=== PATIENT | female | born 1995 ===

== ENCOUNTER 2021-02-19 12:22 | Outpatient (REF) | payer OTHER, SELFPAY ==
--- NOTE | ~2021-02-19 | US_ITS ---
EXAMINATION: US DIAGNOSTIC ULTRASOUND BREAST, RIGHT CLINICAL INFORMATION: Palpable abnormality. Previous biopsy and surgical removal of right breast mass with differential diagnosis of phyllodes tumor or fibroadenoma. COMPARISON: Outside studies of 07/21/2018 and 07/13/2018. TECHNIQUE: Ultrasound of the breast is performed with real-time dutton-scale imaging and color Doppler. FINDINGS: At the 5 o'clock position, approximately 5 cm from the nipple, there is a heterogeneous hypoechoic well-circumscribed mass with some increased through sound transmission and internal vascularity likely representing a fibroadenoma. This, however, measures 5.4 x 3.4 x 3.0 cm in size and although likely represents a fibroadenoma, a phyllodes tumor cannot be excluded; and biopsy is recommended. Results were not discussed with the patient at time of study due to not having outside studies or reports. 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 ASSESSMENT: BI-RADS 4: Suspicious. (Subcategory 4A: Low suspicion for malignancy). RECOMMENDATION: Ultrasound-guided biopsy or surgical consultation. Referring physician and patient will be notified by Breast Center Navigator in the morning when physician's office is open.
--- NOTE | ~2021-02-19 | US_ITS ---
EXAMINATION: US DIAGNOSTIC ULTRASOUND BREAST, LEFT CLINICAL INFORMATION: Palpable abnormality. COMPARISON: Outside studies of 07/21/2018 and 07/13/2018. TECHNIQUE: Ultrasound of the breast is performed with real-time dutton scale imaging and color Doppler. FINDINGS: Patient came a history of previous right breast biopsy and surgery. The pathology result that was obtained from [facility] gave a differential diagnosis between phyllodes tumor and cellular fibroadenoma. This lesion was at the 3 o'clock position approximately 6 cm from the nipple. At the 8 o'clock position approximately 8 cm nipple, there is a well-circumscribed hypoechoic lesion measuring 1.4 x 1.1 x 1.1 cm in size. There is increase through sound transmission and minimal vascular flow appreciated. The lesion is wider than it is tall and has the appearance of a fibroadenoma. At the 3 o'clock position approximately 9 cm from nipple, there is a large 4.0 x 2.0 x 2.1 cm well-circumscribed heterogeneous and hypoechoic mass with distal through sound transmission and internal vascularity. Would consider biopsying the 3 o'clock lesion which measures up to 4 cm in diameter and with previous lesion that was biopsied and removed having a differential diagnosis of phyllodes tumor or fibroadenoma. There results were not discussed with the patient at time of visit due to not having outside studies or reports for comparison. 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 ASSESSMENT: BI-RADS 4: Suspicious. (Subcategory 4A: Low suspicion for malignancy). RECOMMENDATION: Ultrasound-guided biopsy or surgical removal. The above recommendation will be called to referring provider's office in the morning when the office opens. Patient will be notified by breast center navigator tomorrow.
== END 2021-02-19 12:23 | disposition home or self-care (01) ==
LOC: HO.MAMMO 12:22
PROVIDERS: Visit Provider Family Medicine
DX: N63.11 Unspecified lump in the right breast, upper outer quadrant (principal); N63.25 Unspecified lump in the left breast, overlapping quadrants
CPT/HCPCS: 76642

== ENCOUNTER 2021-02-26 15:08 | Emergency (ER) | payer OTHER, SELFPAY ==
--- NOTE | ~2021-02-26 | CT_ITS ---
EXAMINATION: CT ABDOMEN AND PELVIS WITHOUT CONTRAST CLINICAL INFORMATION: Right flank and right upper quadrant pain. Fall. COMPARISON: None TECHNIQUE: Multidetector volumetric imaging was performed from the superior aspect of the liver through the pubic symphysis. Sagittal and coronal reformatted images were obtained on the technologist's workstation. This CT examination was performed using dose optimization techniques as appropriate, variously including the following: *Automated exposure control *Adjustment of mA and/or kV according to patient size (this includes techniques or standardized protocols for targeted exams where dose is matched to indication/reason for exam; i.e. extremities or head) *Use of iterative reconstruction technique DLP: 901 mGy-cm FINDINGS: LUNG BASES: The visualized lung bases are clear. Areas of soft tissue nodularity within the right and left breast as seen on the recent breast ultrasound. Correlation with breast imaging is recommended. LIVER, GALLBLADDER, AND BILIARY TREE: The liver is normal in size and shape. Parenchymal hypoattenuation, consistent with steatosis. No focal hepatic lesion or biliary ductal dilatation is present. The gallbladder is unremarkable with no evidence of radiopaque gallstones, gallbladder wall thickening, or obvious pericholecystic inflammatory changes. PANCREAS: Unremarkable. SPLEEN: Unremarkable. ADRENAL GLANDS: Unremarkable. KIDNEYS AND URETERS: The kidneys are normal in size, shape, and attenuation. No hydronephrosis, hydroureter, or calculi seen. No perinephric stranding. BLADDER: Unremarkable. GASTROINTESTINAL TRACT: No bowel wall thickening or associated inflammatory change. No small or large bowel obstruction. Unremarkable appendix. PERITONEAL CAVITY: No intra-abdominal free air or free fluid. No intra-abdominal mass or organized fluid collection/abscess formation. ABDOMINAL WALL: No significant hernia is appreciated. LYMPH NODES: No significant lymphadenopathy. VASCULAR: Unremarkable. PELVIC VISCERA: The uterus and adnexa are unremarkable. OSSEOUS STRUCTURES: No acute fracture or dislocation. No concerning lytic or blastic osseous lesion. CT/CT abdomen pelvis wo con IMPRESSION: 1. No acute intra-abdominal or intrapelvic injury. No acute fracture or dislocation. 2. Hepatic steatosis. No hepatic parenchymal lesion or biliary ductal dilatation. 3. Right and left breast soft tissue lesions, similar when compared to the prior ultrasound. Correlate with prior breast imaging and recommendations.
[2021-02-26 16:04] VITALS: BP 147/82; PULSE 100; RESP 16; TEMP 36.9; O2SAT 100; BMI 37.8
[2021-02-26 16:34] LABS: Glucose Urine UA NEG (NEG); Leukocyte Esterase Urine NEG (NEG); Nitrite Urine NEG (NEG); Specific Gravity - Urine 1.025 (1.005-1.025); Urine Blood NEG (NEG); Urine Ketones NEG (NEG); Urine Protein NEG (NEG-TRACE)
[2021-02-26 16:35] LABS: Appearance Urine CLEAR; Color Urine YELLOW; UPreg QC Valid YES; Urine Pregnancy NEGATIVE (NEGATIVE)
--- NOTE | 2021-02-26 16:48 | ED.BACK ---
HPI - Back Pain/Injury General Chief Complaint: Back Pain/Injury Stated Complaint: back pain - fall yesterdat Time Seen by Provider: 02/26/21 16:46 Source: patient Mode of arrival: ambulatory Limitations: no limitations History of Present Illness HPI Narrative: healthy 26 yo female here with 2 months of sharp R sided flank pain and RUQ pain worse with eating last night fell off the bed and notes her R flank and RUQ hurt worse she landed on a hard shoe no vomiting/hematuria/no other injuries noted MD elicited complaint: back pain and back injury Pertinent past history: prior back pain Onset (ago): day(s) (yesterday) Timing: constant Severity: moderate Similar Symptoms Previously: Yes Quality: aching and throbbing Location: right flank Radiation: abdomen Exacerbating factors: movement Relieving factors: none Context: fall Associated symptoms: denies other symptoms Work related injury: No Related Data Previous Rx's Medication Instructions Recorded cyclobenzaprine 10 mg PO TID PRN #14 tab 02/26/21 ibuprofen 600 mg PO Q6H PRN #30 tab 02/26/21 lidocaine 1 patch TOPICAL DAILY PRN #10 ea 02/26/21 Allergies Allergy/AdvReac Type Severity Reaction Status Date / Time Penicillins Allergy Anaphylaxis Verified 02/26/21 16:02 Review of Systems Review of Systems: Constitutional : No Weight loss, No Fever, No Chills ENT/Mouth : No sore throat, No Rhinorrhea Eyes: No Swelling, No Redness Cardiovascular : No Chest Pain, No SOB, NoEdema Respiratory : No Cough, No Sputum, No Wheezing Gastrointestinal : no Nausea, no Vomiting, no Diarrhea, positive abdominal Pain, No Hematochezia, No Melena Genitourinary : No Dysuria, No Urinary Frequency, No Hematuria, No Urgency Musculoskeletal : No joint pain, No Myalgias, No Joint Swelling, pos flank pain Skin : No Skin Lesions, No rash Neuro : No Weakness, No Numbness, No Dizziness, No Headache Psych : No Anxiety/Panic, No Depression Heme/Lymph: No Bruising, No Lymphadenopathy Endocrine : No Polyuria, No Polydipsia All other systems reviewed and are negative. [facility] Past Medical History Attestation statement: The following information was validated with the patient. Medical History (Updated 02/26/21 @ 18:28 by Tamra Powers DO) No active medical problems Social History Social History (Updated 02/26/21 @ 16:54 by Tamra Powers DO) Patient Tobacco Use Status: Never used Tobacco Use of substances other than those prescribed or required for medical reasons: No Advance Directives: No Advance Directives Information Provided: No Patient : No Physical Exam Vital Signs: Vital Signs: Last Vital Signs Temp 98.4 F 02/26/21 16:04 Pulse 79 02/26/21 17:36 Resp 16 02/26/21 17:36 BP 146/82 H 02/26/21 17:36 Pulse Ox 100 02/26/21 17:36 Body Mass Index 37.8 Appearance: Alert. Oriented X3. No acute distress. Eyes: Pupils equal, round and reactive to light. ENT: Pharynx normal. Neck: Normal inspection. Neck supple. CVS: Normal heart rate and rhythm. Pulses normal. Respiratory: No respiratory distress. Breath sounds normal. Abdomen: Soft and mild RUQ ttp no rebound or guarding Back: ttp along R flank no hematoma or trauma noted Skin: Skin warm and dry. Normal skin color. Normal skin turgor. Extremities: No lower extremity edema. No calf ttp Neuro: Oriented X 3. No motor deficit. No sensory deficit. Course Course Course Narrative: no acute findings, stable for DC MDM - Back Pain/Injury MDM Narrative Medical decision making narrative: healthy 26 yo female here with 2 months of sharp R sided flank pain and RUQ pain worse with eating last night fell off the bed and notes her R flank and RUQ hurt worse she landed on a hard shoe no vomiting/hematuria/no other injuries noted her abdomen is relatively benign suspect that this is GB disease given related to foods, she c/o R flank as well x 2 to 3 months that I cannot fully contribute to MSK problem at this time UA for hematuria and CT scan for mass/renal colic/gallstones ordered, doubt acute abdominal trauma, doubt acute infection, dispo per results and findings. Lab Data Labs: Lab Results 02/26/21 02/26/21 Range/Units 16:20 16:20 Urine Color YELLOW Urine Appearance CLEAR Urine pH 6.0 (5.0-8.0) Ur Specific Murphy 1.025 (1.005-1.025) Urine Protein NEG (NEG-TRACE) MG/DL Urine Glucose (UA) NEG (NEG) MG/DL Urine Ketones NEG (NEG) MG/DL Urine Blood NEG (NEG) Urine Nitrite NEG (NEG) Ur Leukocyte Esterase NEG (NEG) Urine Test NEGATIVE (NEGATIVE) Discharge Plan Discharge Clinical Impression: Thoracic back pain Qualifiers: Chronicity: acute Back pain laterality: right Qualified Code(s): M54.6 - Pain in thoracic spine Patient Disposition: Home, Self-Care Instructions: Back Pain (ED) Additional Instructions: return to ED for any worsening symptoms or concerns CT scan result 1. No acute intra-abdominal or intrapelvic injury. No acute fracture or dislocation. 2. Hepatic steatosis. No hepatic parenchymal lesion or biliary ductal dilatation. 3. Right and left breast soft tissue lesions, similar when compared to the prior ultrasound. Correlate with prior breast imaging and recommendations. Prescriptions: New cyclobenzaprine 10 mg tablet 10 mg PO TID PRN (Reason: muscle spasm) Qty: 14 RF: 0 lidocaine 4 % adhesive patch,medicated 1 patch topical DAILY PRN (Reason: pain) Qty: 10 RF: 0 ibuprofen 600 mg tablet 600 mg PO Q6H PRN (Reason: pain) Qty: 30 RF: 0 Referrals: Imelda Vail MD [Primary Care Provider] - 5 days (if not better) Stand Alone Forms: Work/School Release
[2021-02-26 17:36] VITALS: BP 146/82; PULSE 79; RESP 16; O2SAT 100
== END 2021-02-26 18:38 | disposition home or self-care (01) ==
PROVIDERS: Emergency Medicine Emergency Medical Services; Emergency Provider Emergency Medicine; PCP Pediatrics
DX: M54.6 Pain in thoracic spine (principal); R10.11 Right upper quadrant pain
CPT/HCPCS: 74176; 81003; 81025; 99284

== ENCOUNTER 2021-03-01 09:45 | Outpatient (REF) | payer OTHER, SELFPAY ==
--- NOTE | ~2021-03-01 | US_ITS ---
EXAMINATION: ULTRASOUND GUIDED CORE BIOPSY BREAST (TWO SITES), BILATERAL POST PROCEDURE DIGITAL MAMMOGRAM, BILATERAL CLINICAL INFORMATION: 26-year-old with prior history incision right breast mass (phyllodes versus fibroadenoma). Recent targeted ultrasound demonstrates right breast mass lower quadrant 5.4 cm, and left breast outer quadrant 4.0 cm. COMPARISON: Bilateral targeted breast ultrasound 02/19/2021. FINDINGS: Proper informed consent is obtained from the patient after discussion of the procedure, potential risks and complications, and alternatives. Patient was given an opportunity for questions. The patient appeared to understand. The patient consented to the procedure and signed the consent form. LEFT BREAST: LOCATION: Lower outer quadrant, approximately 3:00. GUIDANCE: Ultrasound-guided; aseptic technique. LESION: Solid macrolobulated oval mass 4 cm in greatest dimension. APPROACH: Oblique caudal cranial. ANESTHESIA: 10 mL 1% lidocaine. DERMATOTOMY: Skin brian dermatotomy performed. NEEDLE: 14-gauge Achieve core biopsy device with 13.5-gauge co-axial guide needle. CORES: 5. CLIP: HydroMARK; shape: butterfly. RIGHT BREAST: New anesthesia and biopsy supplies are used. LOCATION: Lower inner quadrant, approximately 5:00. GUIDANCE: Ultrasound-guided; aseptic technique. LESION: Solid macrolobulated oval mass 5.4 cm in greatest dimension. APPROACH: Lateral medial. ANESTHESIA: 10 mL 1% lidocaine. DERMATOTOMY: Skin brian dermatotomy performed. NEEDLE: 14-gauge Achieve core biopsy device with 13.5-gauge co-axial guide needle. CORES: 5. CLIP: HydroMARK; shape: open coil. POST PROCEDURE DIGITAL MAMMOGRAM: The post biopsy mammogram is performed in separate room using separate digital mammography equipment from the biopsy procedure. Bilateral CC views are obtained to confirm clip deployment. There are scattered areas of fibroglandular density (breast composition category: b). The clip markers are in position and overlie left outer mass and right central inner mass. No gross hematoma. The patient tolerated the procedure well. No immediate complications. Home instructions reviewed with the patient. Final pathology results are pending. US/US breast ndl core biopsy RT IMPRESSION: 1. Status post ultrasound-guided core biopsy bilateral breast. 2. Clips placed: HydroMARK; shape: butterfly and HydroMARK; shape: open coil 3. Pathology pending. An addendum report will be issued.
--- NOTE | ~2021-03-01 | US_ITS ---
EXAMINATION: ULTRASOUND GUIDED CORE BIOPSY BREAST (TWO SITES), BILATERAL POST PROCEDURE DIGITAL MAMMOGRAM, BILATERAL CLINICAL INFORMATION: 26-year-old with prior history incision right breast mass (phyllodes versus fibroadenoma). Recent targeted ultrasound demonstrates right breast mass lower quadrant 5.4 cm, and left breast outer quadrant 4.0 cm. COMPARISON: Bilateral targeted breast ultrasound 02/19/2021. FINDINGS: Proper informed consent is obtained from the patient after discussion of the procedure, potential risks and complications, and alternatives. Patient was given an opportunity for questions. The patient appeared to understand. The patient consented to the procedure and signed the consent form. LEFT BREAST: LOCATION: Lower outer quadrant, approximately 3:00. GUIDANCE: Ultrasound-guided; aseptic technique. LESION: Solid macrolobulated oval mass 4 cm in greatest dimension. APPROACH: Oblique caudal cranial. ANESTHESIA: 10 mL 1% lidocaine. DERMATOTOMY: Skin brian dermatotomy performed. NEEDLE: 14-gauge Achieve core biopsy device with 13.5-gauge co-axial guide needle. CORES: 5. CLIP: HydroMARK; shape: butterfly. RIGHT BREAST: New anesthesia and biopsy supplies are used. LOCATION: Lower inner quadrant, approximately 5:00. GUIDANCE: Ultrasound-guided; aseptic technique. LESION: Solid macrolobulated oval mass 5.4 cm in greatest dimension. APPROACH: Lateral medial. ANESTHESIA: 10 mL 1% lidocaine. DERMATOTOMY: Skin brian dermatotomy performed. NEEDLE: 14-gauge Achieve core biopsy device with 13.5-gauge co-axial guide needle. CORES: 5. CLIP: HydroMARK; shape: open coil. POST PROCEDURE DIGITAL MAMMOGRAM: The post biopsy mammogram is performed in separate room using separate digital mammography equipment from the biopsy procedure. Bilateral CC views are obtained to confirm clip deployment. There are scattered areas of fibroglandular density (breast composition category: b). The clip markers are in position and overlie left outer mass and right central inner mass. No gross hematoma. The patient tolerated the procedure well. No immediate complications. Home instructions reviewed with the patient. Final pathology results are pending. US/US breast ndl core biopsy LT IMPRESSION: 1. Status post ultrasound-guided core biopsy bilateral breast. 2. Clips placed: HydroMARK; shape: butterfly and HydroMARK; shape: open coil 3. Pathology pending. An addendum report will be issued.
== END 2021-03-01 09:46 | disposition home or self-care (01) ==
LOC: HO.MAMMO 09:45
PROVIDERS: Visit Provider Surgery
DX: N63.25 Unspecified lump in the left breast, overlapping quadrants (principal); N63.14 Unspecified lump in the right breast, lower inner quadrant
CPT/HCPCS: 19083; 77066; 88305; 99202; A4648

== ENCOUNTER → 2021-03-06 13:56 | Outpatient (BNVA) | payer OTHER, SELFPAY | PROVIDERS: PCP Pediatrics; Referring Provider Pediatrics; Visit Provider Surgery | DX: N63.10 Unspecified lump in the right breast, unspecified quadrant (principal); N63.20 Unspecified lump in the left breast, unspecified quadrant; D24.1 Benign neoplasm of right breast; D24.2 Benign neoplasm of left breast | CPT/HCPCS: 99212 ==

== ENCOUNTER 2021-03-16 06:39 | Emergency (ER) | payer OTHER, SELFPAY ==
[2021-03-16 07:02] VITALS: BP 144/95; PULSE 92; RESP 20; TEMP 36.7; O2SAT 100; BMI 37.5
--- NOTE | 2021-03-16 07:07 | ED.GENADULT ---
HPI - General Adult General Chief complaint: General Medical Stated complaint: flank pain Time Seen by Provider: 03/16/21 06:59 Source: patient Mode of arrival: ambulatory Limitations: no limitations History of Present Illness HPI narrative: Patient comes to the emergency room complaining of right-sided back pain. Patient states it started yesterday prior to going to work. Patient states the pain is worse when she moves certain ways. Denies abdominal pain, no nausea vomiting or diarrhea, denies dysuria or hematuria. Patient's symptoms unrelated to meals. Patient was evaluated here in the emergency room 2 and half weeks ago for similar reason. A CT was done, which showed no acute intra-abdominal or intrapelvic injury, normal liver, gallbladder is unremarkable, no kidney stones. Related Data Home Medications Medication Instructions Recorded Confirmed blood pressure test kit-large #1 ea 03/01/21 03/06/21 hydrochlorothiazide 25 mg tablet 25 mg PO DAILY 03/01/21 03/06/21 Previous Rx's Medication Instructions Recorded cyclobenzaprine 10 mg PO TID PRN #14 tab 02/26/21 ibuprofen 600 mg PO Q6H PRN #30 tab 02/26/21 lidocaine 1 patch TOPICAL DAILY PRN #10 ea 02/26/21 baclofen 10 mg PO TID PRN #10 tab 03/16/21 ketorolac 10 mg PO TID PRN 5 Days #7 tab 03/16/21 Allergies Allergy/AdvReac Type Severity Reaction Status Date / Time Penicillins Allergy Anaphylaxis Verified 02/26/21 16:02 Review of Systems Review of Systems: Constitutional : No Weight loss, No Fever, No Chills, No Night Sweats, No Fatigue, No Malaise ENT/Mouth : No Hearing loss, No Ear Pain, No Nasal Congestion, No Sinus Pain, No Hoarseness, No sore throat, No Rhinorrhea, No Swallowing Difficulty Eyes: No Eye Pain, No Swelling, No Redness, No Foreign Body, No Discharge, No Vision Changes Cardiovascular : No Chest Pain, No SOB, No Dyspnea on Exertion, No Orthopnea, No Edema, No Palpitations Respiratory : No Cough, No Sputum, No Wheezing, No Smoke Exposure, No Dyspnea Gastrointestinal : No Nausea, No Vomiting, No Diarrhea, No Constipation, No abdominal Pain, No Hematochezia, No Melena Genitourinary : no irregular bleeding, No Dysuria, No Urinary Frequency, No Hematuria, No Urinary Incontinence, No Urgency, No Flank Pain, No Urinary Flow Changes, No Hesitancy Musculoskeletal : Complaining of right upper back pain, No joint pain, No Myalgias, No Joint Swelling Skin : No Skin Lesions, No rash Neuro : No Weakness, No Numbness, No Paresthesias, No Loss of Consciousness, No Dizziness, No Headache Psych : No Anxiety/Panic, No Depression, No SI/HI/AH/VH, No Social Issues, Heme/Lymph: No Bruising, No Bleeding,No Lymphadenopathy Endocrine : No Polyuria, No Polydipsia, No Temperature Intolerance [facility] Past Medical History Medical History No active medical problems Surgical History History of lumpectomy of right breast (2018) Family History Family History Maternal Aunt Breast cancer Social History Social History Alcohol intake: never Patient Tobacco Use Status: Never used Tobacco Use of substances other than those prescribed or required for medical reasons: No Advance Directives: No Advance Directives Information Provided: No Patient : No Physical Exam Vital Signs: Vital Signs: Last Vital Signs Temp 98.1 F 03/16/21 07:02 Pulse 92 03/16/21 07:02 Resp 20 03/16/21 07:02 BP 144/95 H 03/16/21 07:02 Pulse Ox 100 03/16/21 07:02 Body Mass Index 37.5 Appearance: Alert. Oriented X3. No acute distress. Well-appearing Eyes: Pupils equal, round and reactive to light. ENT: Pharynx normal. Neck: Normal inspection. Neck supple. No lymph nodes noted. No crepitus CVS: Normal heart rate and rhythm. Pulses normal. Normal S1 and S2 Respiratory: No respiratory distress. Breath sounds normal. No Wheezing. No rales Abdomen: Soft and nontender. No rigidity. No distention. Back: No pain to palpation on the left side of the back, discomfort to palpation over the thoracic back on the right side, negative CVA tenderness Skin: Skin warm and dry. Normal skin color. Normal skin turgor. Extremities: No lower extremity edema. No lower extremity edema. No Lacerations. No Rash Neuro: Oriented X 3. No motor deficit. No sensory deficit. Moving all extermities. No slurred speech. Course Course Course Narrative: Patient's urinalysis shows +1 blood, patient is currently menstruating. As mentioned above, patient does not have abdominal pain, back pain likely musculoskeletal. Patient received 1 dose of IM Toradol. I discussed with the patient that since she has been having this intermittent pains for over 3 months now, she went to follow-up with her primary care physician, she may benefit from physical therapy Medical Decision Making Lab Data Result diagrams: 03/16/21 07:21 03/16/21 07:21 Labs: Lab Results 03/16/21 03/16/21 03/16/21 Range/Units 07:21 07:21 07:21 WBC 9.7 (4.8-10.8) X10*3/uL RBC 4.99 (4.20-5.50) X10*6/uL Hgb 12.5 (12.0-16.0) g/dl Hct 39.5 (37-47) % MCV 79.2 L (80-98) fL MCH 25.1 L (27.0-33.0) pg MCHC 31.6 (31.0-35.0) g/dl RDW 15.3 (11.0-16.0) % Plt Count 355 (160-400) X10*3/uL MPV 10.7 (9.4-12.3) fL Immature Gran % (Auto) 0.3 (0.0-0.4) % Neut % (Auto) 61.1 (45-73) % Lymph % (Auto) 29.2 (20-40) % [place] % (Auto) 6.1 (2-11) % Eos % (Auto) 2.8 (0-4) % Baso % (Auto) 0.5 (0-2) % Lymph # (Auto) 2.8 (1.2-4.9) X10*3/uL [place] # (Auto) 0.6 (0.1-1.2) X10*3/uL Eos # (Auto) 0.3 (0.0-0.4) X10*3/uL Baso # (Auto) 0.1 (0.0-0.2) X10*3/uL Abs Immat Gran (auto) 0.03 (0.00-0.03) X10*3/uL Absolute Neuts (auto) 6.0 (2.0-8.3) X10*3/uL Absolute Nucleated RBC 0.000 (0.0-0.012) X10*3/uL Nucleated RBC % (auto) 0.0 (0.0-0.2) /100WBC Sodium 139 (135-145) mmol/L Potassium 3.4 (3.3-5.1) mmol/L Chloride 102 (96-108) mmol/L Carbon Dioxide 28 (22-29) mmol/L Anion Gap 12 (12-20) BUN 12 (9-16) mg/dL Creatinine 0.89 (0.5-1.4) mg/dL Estim Creat Clear Calc 105.7 Estimated GFR > 60 Random Glucose 127 H (60-115) mg/dL Calcium 9.5 (8.4-10.2) mg/dL Total Bilirubin 0.4 (0.0-1.0) mg/dL Direct Bilirubin < 0.2 (0.0-0.5) mg/dL AST 16 (5-31) U/L ALT 26 (0-31) U/L Alkaline Phosphatase 69 (39-117) U/L Total Protein 7.7 (6.5-8.0) g/dL Albumin 4.1 (3.5-5.0) g/dL Urine Color YELLOW Urine Appearance CLEAR Urine pH 6.0 (5.0-8.0) Ur Specific [place] 1.010 (1.005-1.025) Urine Protein NEG (NEG-TRACE) MG/DL Urine Glucose (UA) NEG (NEG) MG/DL Urine Ketones NEG (NEG) MG/DL Urine Blood 1+ H (NEG) Urine Nitrite NEG (NEG) Ur Leukocyte Esterase NEG (NEG) Urine RBC 0-2 (0) /HPF Urine WBC 0-2 (0-4) /HPF Ur Squamous Epith Cells TRACE /LPF Calcium Phosphate Cryst TRACE /LPF Urine Bacteria TRACE /LPF Urine Test (NEGATIVE) 03/16/21 Range/Units 07:21 WBC (4.8-10.8) X10*3/uL RBC (4.20-5.50) X10*6/uL Hgb (12.0-16.0) g/dl Hct (37-47) % MCV (80-98) fL MCH (27.0-33.0) pg MCHC (31.0-35.0) g/dl RDW (11.0-16.0) % Plt Count (160-400) X10*3/uL MPV (9.4-12.3) fL Immature Gran % (Auto) (0.0-0.4) % Neut % (Auto) (45-73) % Lymph % (Auto) (20-40) % [place] % (Auto) (2-11) % Eos % (Auto) (0-4) % Baso % (Auto) (0-2) % Lymph # (Auto) (1.2-4.9) X10*3/uL [place] # (Auto) (0.1-1.2) X10*3/uL Eos # (Auto) (0.0-0.4) X10*3/uL Baso # (Auto) (0.0-0.2) X10*3/uL Abs Immat Gran (auto) (0.00-0.03) X10*3/uL Absolute Neuts (auto) (2.0-8.3) X10*3/uL Absolute Nucleated RBC (0.0-0.012) X10*3/uL Nucleated RBC % (auto) (0.0-0.2) /100WBC Sodium (135-145) mmol/L Potassium (3.3-5.1) mmol/L Chloride (96-108) mmol/L Carbon Dioxide (22-29) mmol/L Anion Gap (12-20) BUN (9-16) mg/dL Creatinine (0.5-1.4) mg/dL Estim Creat Clear Calc Estimated GFR Random Glucose (60-115) mg/dL Calcium (8.4-10.2) mg/dL Total Bilirubin (0.0-1.0) mg/dL Direct Bilirubin (0.0-0.5) mg/dL AST (5-31) U/L ALT (0-31) U/L Alkaline Phosphatase (39-117) U/L Total Protein (6.5-8.0) g/dL Albumin (3.5-5.0) g/dL Urine Color Urine Appearance Urine pH (5.0-8.0) Ur Specific [place] (1.005-1.025) Urine Protein (NEG-TRACE) MG/DL Urine Glucose (UA) (NEG) MG/DL Urine Ketones (NEG) MG/DL Urine Blood (NEG) Urine Nitrite (NEG) Ur Leukocyte Esterase (NEG) Urine RBC (0) /HPF Urine WBC (0-4) /HPF Ur Squamous Epith Cells /LPF Calcium Phosphate Cryst /LPF Urine Bacteria /LPF Urine Test NEGATIVE (NEGATIVE) Discharge Plan Discharge Clinical Impression: Chronic right-sided thoracic back pain Patient Disposition: Home, Self-Care Instructions: Back Pain (ED) Additional Instructions: Please follow-up with your primary care physician tomorrow. If you have any worsening or new symptoms, please return to the emergency room or call 911 Prescriptions: New ketorolac 10 mg tablet 10 mg PO TID PRN (Reason: pain) 5 Days Qty: 7 RF: 0 baclofen 10 mg tablet 10 mg PO TID PRN (Reason: muscle pain) Qty: 10 RF: 0 No Action cyclobenzaprine 10 mg tablet 10 mg PO TID PRN (Reason: muscle spasm) Qty: 14 RF: 0 lidocaine 4 % adhesive patch,medicated 1 patch topical DAILY PRN (Reason: pain) Qty: 10 RF: 0 ibuprofen 600 mg tablet 600 mg PO Q6H PRN (Reason: pain) Qty: 30 RF: 0 (DME) blood pressure test kit-large Kit See Rx Instructions ea .ROUTE DAILY Qty: 1 RF: 0 hydrochlorothiazide 25 mg tablet 25 mg PO DAILY RF: 0
--- NOTE | 2021-03-16 07:08 | PC.NURSE ---
MD IN TO ASSESS PT. PATIENT REPORTING PAIN IN RIGHT MID BACK WORKSE WITH MOVEMENT AND TOUCH. 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 ALSO TOLD RN SHE HAS NOT HAD THIS TYPE OF PAIN BEFORE BUT HAS BEEN SEEN RECENTLY FOR SIMILAR COMPLAINT AND HAS HAD PAIN FOR MONTHS. PATIENT AWARE OF PLAN FOR URINE SAMPLE, BLOOD WORK AND MED FOR PAIN.
[2021-03-16 07:25] LABS: MANUAL DIFF FLAG NO
[2021-03-16 07:26] LABS: Basophils Absolute Auto 0.1 X10*3/uL (0.0-0.2); Basophils Percent Auto 0.5 % (0-2); Eosinophils Absolute Auto 0.3 X10*3/uL (0.0-0.4); Eosinophils Percent Auto 2.8 % (0-4); Hematocrit 39.5 % (37-47); Hemoglobin 12.5 g/dl (12.0-16.0); Imm Gran Abs Auto 0.03 X10*3/uL (0.00-0.03); Imm Gran Pct Auto 0.3 % (0.0-0.4); Lymphocytes Absolute Auto 2.8 X10*3/uL (1.2-4.9); Lymphocytes Percent Auto 29.2 % (20-40); Mean Corpuscular HGB Conc 31.6 g/dl (31.0-35.0); Mean Corpuscular Hemoglobin 25.1 pg (27.0-33.0); Mean Corpuscular Volume 79.2 fL (80-98); Mean Platelet Volume 10.7 fL (9.4-12.3); Monocytes Absolute Auto 0.6 X10*3/uL (0.1-1.2); Monocytes Percent Auto 6.1 % (2-11); Neutrophils Percent Auto 61.1 % (45-73); Platelet Count 355 X10*3/uL (160-400); Red Blood Count 4.99 X10*6/uL (4.20-5.50); Red Cell Distribution Width 15.3 % (11.0-16.0); White Blood Count 9.7 X10*3/uL (4.8-10.8)
[2021-03-16 07:32] LABS: Appearance Urine CLEAR; Color Urine YELLOW; Glucose Urine UA NEG (NEG); Leukocyte Esterase Urine NEG (NEG); Nitrite Urine NEG (NEG); Urine Blood 1+ (NEG); Urine Ketones NEG (NEG); Urine Protein NEG (NEG-TRACE)
[2021-03-16 07:42] LABS: UPreg QC Valid YES; Urine Pregnancy NEGATIVE (NEGATIVE)
[2021-03-16 07:43] LABS: Bacteria Urine TRACE /LPF; Calcium Phosphate Crystals Ur TRACE /LPF; RBC Urine 0-2 /HPF (0); Squamous Epithelial Cell Urine TRACE /LPF; WBC Urine 0-2 /HPF (0-4)
[2021-03-16 08:02] LABS: Alanine Aminotransferase 26 U/L (0-31); Albumin Level 4.1 g/dL (3.5-5.0); Alkaline Phosphatase 69 U/L (39-117); Anion Gap 12 (12-20); Aspartate Amino Transferase 16 U/L (5-31); Bilirubin Direct < 0.2 mg/dL (0.0-0.5); Bilirubin Total 0.4 mg/dL (0.0-1.0); Blood Urea Nitrogen 12 mg/dL (9-16); Calcium 9.5 mg/dL (8.4-10.2); Carbon Dioxide 28 mmol/L (22-29); Chloride 102 mmol/L (96-108); Creatinine Clr Calc Pharmacy 105.7; Estimated Glomerular Filt Rate > 60; Glucose Random 127 mg/dL (60-115); Potassium 3.4 mmol/L (3.3-5.1); Sodium 139 mmol/L (135-145); Total Protein 7.7 g/dL (6.5-8.0)
[2021-03-16 08:13] VITALS: BP 131/86; PULSE 72; RESP 16; O2SAT 100
[2021-03-16] MEDS: Ketorolac Tromethamine 60 MG/2 ML VIAL IM (08:14)
== END 2021-03-16 08:20 | disposition home or self-care (01) ==
PROVIDERS: Emergency Provider Emergency Medicine; PCP Pediatrics
DX: G89.29 Other chronic pain (principal); M54.6 Pain in thoracic spine
CPT/HCPCS: 36415; 80048; 80076; 81001; 81025; 85025; 96372; 99284; J1885

== ENCOUNTER 2021-09-20 12:52 | Outpatient (REF) | payer OTHER, SELFPAY ==
--- NOTE | ~2021-09-20 | US_ITS ---
EXAMINATION: US DIAGNOSTIC ULTRASOUND BREAST, LEFT CLINICAL INFORMATION: Fibroadenomas. COMPARISON: 03/01/2021 and studies dating back to 07/13/2018. TECHNIQUE: Ultrasound of the breast is performed with real-time dutton scale imaging and color Doppler. FINDINGS: At the 3 o'clock position 9 cm from nipple there is again noted to be a heterogeneous hypoechoic structure measuring 3.0 x 2.0 x 3.3 cm in size similar in appearance to previous study. There is some increased through sound transmission present. There is internal vascularity present. At the 8 o'clock position 8 cm from the nipple there is again noted to be a heterogeneous hypoechoic structure which is smoothly marginated with internal vascularity and with some distal sound enhancement. This measures slightly larger than on prior study at 1.5 x 1.2 x 1.7 cm compared with 1.4 x 1.1 x 1.1 cm in size from study of 02/19/2021. Results are discussed with the patient at time of visit. US/US breast LT limited IMPRESSION: Slight increase in size of bilateral fibroadenomas for which 12 month follow-up ultrasound studies are recommended. ASSESSMENT: BI-RADS 3: Probably Benign. RECOMMENDATION: 12 month follow-up bilateral ultrasound studies. This patient's information was entered into a reminder system with a target due date for their next mammogram.
--- NOTE | ~2021-09-20 | US_ITS ---
EXAMINATION: US DIAGNOSTIC ULTRASOUND BREAST, RIGHT CLINICAL INFORMATION: Six-month followup bilateral fibroadenomas. COMPARISON: 03/01/2021 and studies dating back to 07/13/2018 TECHNIQUE: Ultrasound of the breast is performed with real-time dutton-scale imaging and color Doppler. FINDINGS: There is again noted to be a heterogeneous circumscribed mass containing an echogenic clip 5 o'clock position 5 cm from nipple, which measures approximately 5.0 x 4.0 x 3.1 cm in size and is similar in appearance to previous examination. The lesion is wider than it is tall and contains internal vascularity. There is some distal sound enhancement present. Results are discussed with the patient at time of visit. US/US breast RT limited IMPRESSION: No suspicious change of right breast fibroadenoma at the 5 o'clock position 5 cm from the nipple. Recommend 12-month followup ultrasound evaluation. ASSESSMENT: BI-RADS 2: Benign. RECOMMENDATION: One-year followup bilateral breast ultrasound. This patient's information was entered into a reminder system with a target due date for their next mammogram.
== END 2021-09-20 12:53 | disposition home or self-care (01) ==
LOC: HO.MAMMO 12:52
PROVIDERS: PCP Pediatrics; Visit Provider Surgery
DX: D24.1 Benign neoplasm of right breast (principal); D24.2 Benign neoplasm of left breast
CPT/HCPCS: 76642

== ENCOUNTER 2022-02-03 14:52 | Emergency (ER) | payer SELFPAY ==
[2022-02-03 14:54] VITALS: BP 152/101; PULSE 116; RESP 18; TEMP 36.9; O2SAT 96; BMI 37.2
[2022-02-03 15:29] LABS: COVID-19 Test Negative (Negative); IDNOW Serial# 16C4AD1C; Influenza A Negative (Negative); Influenza B2 Negative (Negative)
[2022-02-03] MEDS: predniSONE 20 MG TABLET 60 MG PO (16:54)
--- NOTE | 2022-02-03 17:07 | ED_ITS ---
HPI - General Adult General Chief complaint: Upper Respiratory Symptoms Stated complaint: Asthma Time Seen by Provider: 02/03/22 16:03 Source: patient Mode of arrival: ambulatory Limitations: no limitations History of Present Illness HPI narrative: 27-year-old female presents to ED for coughing white plegh with chills for the past couple of days. Patient denies any swelling of lower extremities, calf pain, coughing up blood, chest pain or shortness of breath. Related Data Home Medications Medication Instructions Recorded Confirmed blood pressure test kit-large #1 ea 03/01/21 03/06/21 hydrochlorothiazide 25 mg tablet 25 mg PO DAILY 03/01/21 03/06/21 Previous Rx's Medication Instructions Recorded cyclobenzaprine 10 mg tablet 10 mg PO TID PRN #14 tab 02/26/21 ibuprofen 600 mg tablet 600 mg PO Q6H PRN #30 tab 02/26/21 lidocaine 4 % topical patch 1 patch TOPICAL DAILY PRN #10 ea 02/26/21 baclofen 10 mg tablet 10 mg PO TID PRN #10 tab 03/16/21 ketorolac 10 mg tablet 10 mg PO TID PRN 5 Days #7 tab 03/16/21 albuterol sulfate 2.5 mg (3 mL) INHALATION Q4-6H PRN 02/03/22 #90 ml benzonatate 100 mg capsule 100 mg PO TID PRN 5 Days #15 cap 02/03/22 prednisone 20 mg tablet 60 mg PO DAILY 5 Days #15 tab 02/03/22 Allergies Allergy/AdvReac Type Severity Reaction Status Date / Time Penicillins Allergy Anaphylaxis Verified 02/26/21 16:02 shrimp Allergy Anaphylaxis Verified 02/03/22 14:54 Review of Systems Review of Systems: Coughing with chills. Yes all other systems are reviewed and are negative [facility] Past Medical History Medical History No active medical problems Surgical History History of lumpectomy of right breast (2018) Family History Family History Maternal Aunt Breast cancer Social History Social History Alcohol intake: never Patient Tobacco Use Status: Never used Tobacco Advance Directives: No Advance Directives Information Provided: No Physical Exam ED Vital Signs: Vital Signs - 24 hr 02/03/22 14:54 02/03/22 17:12 Temperature 98.4 F Pulse Rate 116 H 116 H Respiratory Rate 18 20 Blood Pressure 152/101 H Pulse Oximetry 96 BMI result Body Mass Index 37.2 Const General: cooperative, healthy appearing, comfortable, no acute distress, well developed, alert, awake and Physically active Orientation/consciousness: patient oriented x3 [facility] Head: Yes normal to inspection, Yes No palpable skull fracture present, Yes normocephalic, Yes atraumatic and No abrasion Throat: Yes posterior oropharynx normal, Yes tonsils normal and Yes uvula midline Eyes General: appearance normal, both eyes and all related structures Neck Neck: Yes normal visual inspection, Yes full ROM, Yes no lymphadenopathy, Yes no meningeal signs, Yes trachea midline, Yes supple, No anterior neck swelling and No tender Chest Chest palpation & inspection: normal inspection of the chest and normal palpation of entire chest wall Resp Effort & Inspection: normal respiratory effort and able to speak in complete sentences Auscultation: wheezes expiratory wheezes and diminished lung sounds Cardio Jugular venous distension: no JVD Heart sounds: S1 normal heart sound present and S2 normal heart sound present GI Inspection: Yes normal to inspection and No abdominal wall ecchymosis Palpation (GI): Soft to palpation, not firm, nontender, no guarding and not rigid General: No CVA tenderness and Yes no CVA tenderness Back/Spine/Pelvis Back: no CVA tenderness, No CVA tenderness and No back tenderness Skin General skin exam: no rashes or lesions noted and elasticity normal Neuro General: patient oriented x3, gait normal and no meningeal signs Cranial nerves: Yes CN's II-XII intact bilaterally Extrem Other: Lower extremities negative for swelling, pitting edema, or calf tenderness. General: Yes normal to inspection and Yes full ROM Psych Appearance: grossly normal, well kempt and not disheveled Course Course Course Narrative: Albuterol nebulizer and steroids ordered Reevaluation(s) Reevaluation #1: Patient tachycardic due to continued use of albuterol nebulizer at home and in the ER. Patient denies any pleurisy, shortness of breath on exertion, calf pain, coughing up blood, or any use of control pills. Not suspecting PE. Not suspecting NE. NOt suspecting pneumonia. Not suspecting CHF. Patient states she ran out of albuterol nebulizer. Patient to be discharged albuterol nebulizer, Tessalon Perles, and cough medication. Time: 18:19 Medical Decision Making MDM Narrative Medical decision making narrative: Asthma exacerbation Lab Data Labs: Lab Results 02/03/22 02/03/22 Range/Units 15:00 15:00 COVID-19 (CHANG) Negative (Negative) COVID-19 Clin Com See Note Influenza Type A (SLOANE) Negative (Negative) Influenza Type B ([facility]OANE) Negative (Negative) Influenza A & B Note See Note Discharge Plan Discharge Clinical Impression: Asthma exacerbation Patient Disposition: Home, Self-Care Instructions: Asthma (ED) Additional Instructions: Return to the ED immediately for any chest pain, shortness of breath, coughing up blood, leg swelling, calf pain, chest pain on inspiration, weakness, dizziness, intractable fever, chills, or any other concerning symptoms. Prescriptions: New prednisone 20 mg tablet 60 mg PO DAILY 5 Days Qty: 15 0RF albuterol sulfate 2.5 mg /3 mL (0.083 %) solution for nebulization 2.5 mg inhalation Q4-6H PRN (Reason: shortness of breath or wheezing) Qty: 90 0RF benzonatate 100 mg capsule 100 mg PO TID PRN (Reason: cough) 5 Days Qty: 15 0RF No Action cyclobenzaprine 10 mg tablet 10 mg PO TID PRN (Reason: muscle spasm) Qty: 14 0RF lidocaine 4 % adhesive patch,medicated 1 patch topical DAILY PRN (Reason: pain) Qty: 10 0RF Rx Instructions: may leave on for up to 12 hrs ibuprofen 600 mg tablet 600 mg PO Q6H PRN (Reason: pain) Qty: 30 0RF ketorolac 10 mg tablet 10 mg PO TID PRN (Reason: pain) 5 Days Qty: 7 0RF Rx Instructions: Do not use ibuprofen/Motrin with this medication, only use Tylenol if needed. baclofen 10 mg tablet 10 mg PO TID PRN (Reason: muscle pain) Qty: 10 0RF (DME) blood pressure test kit-large Kit See Rx Instructions ea .ROUTE DAILY Qty: 1 0RF Rx Instructions: As directed hydrochlorothiazide 25 mg tablet 25 mg PO DAILY 0RF Stand Alone Forms: Work/School Release Print Language: Estonian
[2022-02-03 17:12] VITALS: PULSE 116; RESP 20; O2SAT 96
[2022-02-03] MEDS: Albuterol/Iprat 2.5/0.5MG 3 ML AMPUL.NEB INHALE (17:12)
== END 2022-02-03 18:37 | disposition home or self-care (01) ==
PROVIDERS: Internal Medicine; Emergency Provider Emergency Medicine; PCP Pediatrics
DX: J45.901 Unspecified asthma with (acute) exacerbation (principal); R00.0 Tachycardia, unspecified; Z79.899 Other long term (current) drug therapy; Z20.822 Contact with and (suspected) exposure to COVID-19
CPT/HCPCS: 87502; 87635; 94640; 99282; 99284

== ENCOUNTER 2022-10-18 13:27 | Outpatient (REF) | payer OTHER, SELFPAY ==
--- NOTE | ~2022-10-18 | US_ITS ---
EXAMINATION: US DIAGNOSTIC BREAST, BILATERAL CLINICAL INFORMATION: Bilateral fibroadenomas. COMPARISON: 09/20/2021 and studies dating back to 07/13/2018. TECHNIQUE: Ultrasound of the breast is performed with real-time dutton scale imaging and color Doppler. FINDINGS: RIGHT BREAST: At the 5 o'clock position, 5 cm from the nipple, there is again noted to be a slightly heterogeneous hypoechoic circumscribed lesion measuring 4.3 x 2.3 x 4.2 cm in size with some mild increased through sound transmission and no significant distal sound shadowing. The lesion is wider than it is tall. There is some internal vascularity present. Echogenic clip is seen from previous biopsy. On prior study, the lesion measured approximately 5.0 x 4.0 x 3.1 cm in size. LEFT BREAST: At the 8 o'clock position, approximately 8 cm from the nipple, there is a circumscribed hypoechoic mass measuring 1.3 x 0.9 x 1.6 cm in size with some increased through sound transmission and no distal sound shadowing. There is a small amount of internal vascularity. The lesion is wider than it is tall with the appearance of a fibroadenoma. Previously, this measured approximately 1.5 x 1.2 x 1.7 cm in size. At the 3 o'clock position, approximately 9 cm from the nipple, there is a hypoechoic slightly lobular mass measuring 2.5 x 2.0 x 3.2 cm in size. There is some internal vascularity present. The lesion is wider than it is tall. No distal sound shadowing identified. Echogenic focus related to previous clip from biopsy is noted. Previously, this measured 3.0 x 2.0 x 3.3 cm in size. No new suspicious finding identified. Results are discussed with the patient at time of visit. US/US breast LT limited IMPRESSION: No aggressive change in appearance of bilateral fibroadenomas. Recommend one year followup bilateral ultrasound to ensure stability. ASSESSMENT: BI-RADS 2: Benign. RECOMMENDATION: One year followup bilateral ultrasound. This patient's information was entered into a reminder system with a target due date for their next mammogram.
== END 2022-10-18 13:28 | disposition home or self-care (01) ==
LOC: HO.MAMMO 13:27
PROVIDERS: PCP Pediatrics; Visit Provider Surgery
DX: D24.2 Benign neoplasm of left breast (principal); D24.1 Benign neoplasm of right breast
CPT/HCPCS: 76642

== ENCOUNTER 2022-12-13 14:21 | Outpatient (REF) | payer OTHER, SELFPAY ==
--- NOTE | ~2022-12-13 | US_ITS ---
EXAMINATION: US PELVIS CLINICAL INFORMATION: Pelvic pain. LMP 11/15/2022. COMPARISON: CT abdomen/pelvis 02/26/2021. TECHNIQUE: Ultrasound of the pelvis is performed using both transabdominal and transvaginal transducers along with Doppler. Transvaginal imaging is performed due to inadequate visualization transabdominally. FINDINGS: The uterus is anteverted and anteflexed measuring 7 x 3.9 x 4.2 cm. No uterine lesion. The endometrium measures 0.3 cm in thickness without discrete focal abnormality. The ovaries are normal in morphology with preserved flow on color Doppler at the moment of this examination. The right ovary measures 2.4 x 1.4 x 2 cm, 3.5 mL and the left ovary measures 3 x 1.7 x 2.6 cm, 7.3 mL. No free fluid. US/US pelvic and transvaginal IMPRESSION: No acute sonographic abnormalities to explain the patient's symptoms.
== END 2022-12-13 14:22 | disposition home or self-care (01) ==
LOC: HO.HMGCX 14:21
PROVIDERS: PCP Pediatrics; Visit Provider Pediatrics
DX: R10.2 Pelvic and perineal pain (principal)
CPT/HCPCS: 76830; 76856

== ENCOUNTER 2023-09-30 12:57 | Outpatient (REF) | payer OTHER, SELFPAY ==
--- NOTE | ~2023-09-30 | US_ITS ---
EXAMINATION: US DIAGNOSTIC ULTRASOUND BREAST, BILATERAL CLINICAL INFORMATION: Follow-up bilateral fibroadenomas. Patient currently , due in October. History of bilateral benign biopsies. COMPARISON: None available. TECHNIQUE: Ultrasound of the breast is performed with real-time dutton scale imaging and color Doppler. FINDINGS: RIGHT BREAST: -At the 5:00 axis of the right breast, 5 cm from the nipple, there is a essentially stable hypoechoic lobular mass with central biopsy clip present, measuring 3.7 x 2.9 x 1.8 cm, slightly smaller than previously on 10/18/2022. It is wider than tall. There is minimal through transmission. There is some internal vascularity present. On the prior exam, it measured approximately 4.3 x 2.3 x 4.2 cm. Finding is benign. No new suspicious findings. LEFT BREAST: -At the 3:00 axis of the left breast, 8 cm from the nipple, there is an essentially stable hypoechoic lobular mass with central biopsy clip measuring 3.6 x 1.9 x 2.8 cm, slightly larger than previously when it measured 2.5 x 2.0 x 3.2 cm. It is hypoechoic, slightly lobular, with a small amount of internal vascularity present. It is wider than tall, with mild through transmission noted. Finding is benign. At the 8:00 position of the left breast, 8 cm from the nipple, there is a 1.7 x 1.0 x 2.4 cm essentially stable hypoechoic lobular mass with a similar features as the other fibroadenomas which underwent biopsy. Previously it measured 1.3 x 0.9 x 1.6 cm and is slightly enlarged likely due to hormonal influence. Finding is benign. No new suspicious findings. US/US breast BI limited mamm only IMPRESSION: Bilateral benign fibroadenomas again demonstrated as detailed above, with slight variations in size likely due to hormonal influence from patient . No further follow-up recommended. ASSESSMENT: BI-RADS 2: Benign RECOMMENDATION: 1. Patient should be managed based on the clinical impression.
== END 2023-09-30 12:58 | disposition home or self-care (01) ==
LOC: HO.MAMMO 12:57
PROVIDERS: PCP Pediatrics; Visit Provider Pediatrics
DX: N60.22 Fibroadenosis of left breast (principal); N60.21 Fibroadenosis of right breast
CPT/HCPCS: 76642

== ENCOUNTER → 2023-09-30 13:00 | Outpatient (BNV) | payer OTHER, SELFPAY | PROVIDERS: PCP Pediatrics; Visit Provider Radiology Diagnostic Radiology | DX: N60.21 Fibroadenosis of right breast (principal); N60.22 Fibroadenosis of left breast | CPT/HCPCS: 76642 ==

== ENCOUNTER 2024-08-05 14:26 | Outpatient (AMB) | payer OTHER, SELFPAY ==
--- NOTE | 2024-08-05 14:36 | A.OFFVIS_ITS ---
Vital Signs 3 08/05/24 14:40 Height 5 ft 4 in Weight 219 lb BMI 37.6 BP 148/80 H Blood Pressure Location Lt brachial Position Sitting Pulse 81 Intake Visit Reasons: bilateral breast cyst Intake Note: Patient is seen in office for left breast cyst. 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 Freight Manager: Freight Manager Present Accompanied by: Family/Other Allergies Penicillins Allergy (Verified 08/05/24 14:37) Anaphylaxis shrimp Allergy (Verified 08/05/24 14:37) Anaphylaxis Medication List - Last Reconciled 08/05/24 by Brendan Sigala MD albuterol sulfate 2.5 mg (3 mL) inhalation Q4-6H PRN blood pressure test kit-large As directed doxycycline hyclate 100 mg PO BID HPI Comments Details: 29-year-old female patient with a known history of bilateral fibroadenoma previously biopsied and followed by ultrasound now presenting with a 2 week history of an area of redness and swelling in the left breast located in the lower outer quadrant just beyond the areola. This began to drain several days ago in his subsequently decreased in size. She reports a 2nd area that was in the lower inner quadrant which swell temporarily but is now decreased in size. She denies any other palpable mass other than the previously identified fibroadenoma. She denies any nipple discharge. [facility] Medical History No active medical problems Surgical History History of lumpectomy of right breast (2018) Family History Maternal Aunt Breast cancer Social History Alcohol intake: never Patient Tobacco Use Status: Never used Tobacco Female Reproductive History Menstrual Age of Menarche: 12 Review of Systems Const Denies chills, Denies fever(s), Denies headache(s) and Denies poor appetite ENT Denies dizziness and Denies headache(s) Card Denies chest pain, Denies rapid heart rate, Denies palpitations and Denies slow heart rate Resp Denies chest congestion, Denies cough, Denies pain on inspiration and Denies wheezing GI Denies abdominal pain, Denies bloating, Denies change in stool character, Denies constipation, Denies diarrhea, Denies nausea, Denies vomiting and Denies hematemesis Denies nipple discharge Musc Denies back pain, Denies arthralgias, Denies joint swelling and Denies numbness Skin/Breast Denies breast swelling, Denies breast skin changes, Reports breast pain, Reports breast mass, Denies change in pigmentation, Denies nipple discharge, Denies erythema and Denies rash Neuro Denies dizziness, Denies headache(s) and Denies numbness Psych Denies anxiety and Denies depression Endo Denies palpitations Scotty/Lymph Denies easy bleeding, Denies easy bruising and Denies lymphadenopathy Aller/Immun Denies wheezing Physical Exam Const General: cooperative, comfortable and well developed Nutritional Appearance: well nourished Orientation/consciousness: patient oriented x3 Eyes Sclerae: sclerae normal EOM: EOMs intact bilaterally Neck Neck: Yes normal visual inspection Chest Other: Examination of the left breast reveals 2 areas of cutaneous skin cysts with a resolving infection in the lower outer portion just lateral to the nipple- areolar complex. This measures approximately 1.5 cm in diameter. There is a central punctum but no discharge noted. No palpable fluctuance is appreciated. The skin is slightly reddened. A 2nd palpable cyst is noted in the subcutaneous tissue in the lower inner quadrant but no active infection is appreciated. Chest/axillae images: 2 1. Site of infection lower outer quadrant Resp Effort & Inspection: normal respiratory effort, no cough, no respiratory distress and no stridor Cardio Jugular venous distension: no JVD GI Inspection: Yes normal to inspection Palpation (GI): Soft to palpation, nontender, no guarding and not rigid Skin General skin exam: dry skin Rashes: no rashes Neuro General: patient oriented x3 and no focal motor deficits Extrem General: Yes full ROM and Yes no clubbing, cyanosis or edema Psych Appearance: grossly normal Assessment & Plan Assessment & Plan (1) Cyst of breast, left, solitary: Code(s): N60.02 - Solitary cyst of left breast Category: Medical Plan 29-year-old female patient with a known history of bilateral fibroadenoma now with a cutaneous cyst of the left breast with abscess. This has subsequently spontaneously drained and decreased in size and pain. Examination today reveals a resolving infected epidermal inclusion cyst. I recommended starting antibiotics with follow-up in 2 weeks. She is welcome to call sooner for any new concerns. Medications: New 2 doxycycline hyclate 100 mg PO BID 20 tabs 0RF Coding Level of Care Code New Pt Level 4 (00437) Diagnoses Cyst of breast, left, solitary N60.02
[2024-08-05 14:40] VITALS: BP 148/80; PULSE 81; BMI 37.6
== END 2024-08-05 14:48 | disposition home or self-care (01) ==
LOC: HO.HGS 14:26
PROVIDERS: PCP Pediatrics; Visit Provider Surgery
DX: N60.02 Solitary cyst of left breast (principal)
CPT/HCPCS: 99204

== ENCOUNTER → 2024-08-05 14:26 | Outpatient (BNVA) | payer OTHER, SELFPAY | PROVIDERS: PCP Pediatrics; Visit Provider Surgery | DX: N60.02 Solitary cyst of left breast (principal) | CPT/HCPCS: 99202 ==